=== PATIENT | male | born 1960 | race Caucasian/White ===

== ENCOUNTER 2023-11-14 13:27 | Inpatient (IN) | payer OTHER, SELFPAY ==
[2023-11-14 13:28] VITALS: BP 111/79; PULSE 117; RESP 18; TEMP 37.4; O2SAT 94; BMI 24.2
--- NOTE | 2023-11-14 14:09 | ECG_ITS ---
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: : 1960 Requested By: Phil Daley Order Number: [id number] Erik MD: GERARDO GAYLE Measurements Intervals [place] Rate: 110 P: 87 TN: 138 QRS: -76 QRSD: 90 T: 88 QT: 319 QTc: 433 Interpretive Statements SINUS TACHYCARDIA POSSIBLE LEFT ATRIAL ENLARGEMENT [-0.1mV P-WAVE IN V1/V2] POSSIBLE RIGHT VENTRICULAR CONDUCTION DELAY [RSR (QR) IN V1/V2] LEFT ANTERIOR FASCICULAR BLOCK [QRS AXIS <= -45, QR IN I, RS IN II] No previous ECG available for comparison Electronically Signed On 11-15-2023 20:24:37 CDT by GERARDO GAYLE [id number]
--- NOTE | 2023-11-14 14:14 | W.ED.PSYCHS ---
Documented by User: Phil Palaciossantiago 11/14/23 22:54 HPI - Psych General: Chief Complaint: Psychiatric Symptoms Stated Complaint: 96 evaluation. HI/SI Time Seen by Provider: 11/14/23 13:30 History of Present Illness: 62-year-old male presents by law enforcement chief complaint of both suicidal and homicidal concerns. Apparently the patient's daughter contacted a lot of force to do a well person check in which patient was acting and verbally aggressive towards law enforcement in which she had several knives on him as well as a gun in which patient was making threats of domestic tears and wanting to blow up people and/or buildings as well as all women should be punished and murdered. Patient made several threats while he was under the custody of law enforcement. Patient was brought into the ER for further assessment and management and evaluation for placement. Upon direct questioning patient does endorse that all women should be thrown in the concentration Which Should Be Murdered in Which he Referenced His Ex- and 30 Years Ago That Still Other Kids in Which the Legal System Has Failed Him in Which She Wants to Murder Everybody Patient Made Multiple Threats of Acts of Violence and As Well As Domestic Terrorism against Others throughout My Conversation with Him Patient Does Not Endorse Any Recent Use of Drugs or Alcohol or Any Other associated i concerns. Associated symptoms: Reports homicidal ideation and suicidal ideation; Deny depression Review of Systems General: Reports: 10 or more systems reviewed and unremarkable except in HPI and below Const: Denies: fever(s), chills, fatigue or malaise Eyes: Denies: change in vision or blurry vision Card: Denies: chest pain or palpitations Resp: Denies: dyspnea or productive cough GI: Denies: abdominal pain, nausea or vomiting : Denies: flank pain Musc: Denies: extremity pain or extremity swelling Skin/Breast: Denies: rash or pruritus Neuro: Denies: headache(s) Psych: Reports: paranoia, suicidal ideation, homicidal ideation and other; Denies: anxiety or depression Archie/Lymph: Denies: easy bleeding All/Imm: Denies: urticaria, throat swelling or facial swelling Physical Exam Const: COMMON NORMALS: patient oriented x3, healthy appearing and alert (Patient is verbally abusive on exam cursing at staff and law enforcement re); apparent distress HENMT: COMMON NORMALS: normocephalic and atraumatic HEAD & SCALP: normocephalic and atraumatic Eye: COMMON NORMALS: Equal, round and reactive pupils present and EOMs intact bilaterally PUPIL: Yes Equal, round and reactive pupils present Neck/C-Spine: COMMON NORMALS: full ROM, supple and no JVD Lymph: LYMPHATIC: no lymphadenopathy noted Chest: COMMONS NORMALS: normal inspection of the chest and normal palpation of entire chest wall Resp: COMMON NORMALS: normal respiratory effort, No retractions and clear to auscultation bilaterally EFFORT & INSPECTION: Yes able to speak in complete sentences and Yes symmetric chest movement AUSCULTATION: clear to auscultation bilaterally Cardio: COMMON NORMALS: no JVD and regular rhythm; negative for regular rate (Sinus tach in the low 100s) RATE: abnormal rate (Sinus tach in the low 100s) RHYTHM: regular rhythm GI: COMMON NORMALS: Normal to inspection, nondistended, normoactive bowel sounds present, Soft to palpation and non-tender INSPECTION: Yes normal to inspection PALPATION: Yes Soft to palpation : COMMON NORMALS: Yes no CVA tenderness BLADDER/KIDNEY EXAM: Yes no CVA tenderness Back/Pelvis: COMMON NORMALS: no CVA tenderness Extremity: COMMON NORMALS: normal to inspection and full ROM Neuro: COMMON NORMALS: patient oriented x3, CN's II-XII intact bilaterally, moves all extremities and no focal motor deficits SENSORIUM/ORIENTATION: Yes alert (Patient is verbally abusive on exam cursing at staff and law enforcement re) Psych: COMMON NORMALS: mental status grossly normal, Normal thought process present, cooperative and normal affect; negative for denies homicidal ideation (Active reports homicidal ideations and wanting to murder people and blow th) and negative for denies suicidal ideation THOUGHT PROCESS: Normal thought process present Skin: COMMON NORMALS: no rashes or lesions noted GENERAL SKIN EXAM: no rashes or lesions noted Course Vital Signs: Vital signs: Vital Signs Temperature 99.3 F 11/14/23 13:28 Pulse Rate 58 L 11/15/23 15:59 Respiratory Rate 16 11/15/23 15:59 Blood Pressure 119/71 11/15/23 15:59 Pulse Oximetry 98 11/15/23 15:59 Oxygen Delivery Me thod Room Air 11/15/23 15:59 MDM - Psych Medical Decision Making Due to patient current statements and 96-hour skilled nursing hold will be initiated on this patient advised the patient that he is here against as well in which we will be detained for his safety of the the staff I advised the patient we will be doing a medical screening examination for placement in which if required both physical and chemical restraints per protocol will be used if he attempts to act out in any concerning physical aggressive manner. Patient was found and medically cleared for psychiatric placement. The patient kalen in stable condition at this time we will continue to contact other facilities as we currently have no open beds in our psych facility. Patient is medically cleared still trying to find placement for this patient at this time this patient was signed out to my colleague Dr. Altman at 2300. Lab Data 11/14/23 14:25 11/14/23 14:25 Radiology Impressions Chest X-Ray 11/15/23 08:49 IMPRESSION: No acute findings. Laboratory Results WBC 10.42 10^3/uL (3.29-11.43) 11/14/23 14:25 RBC 5.85 10^6/uL (3.85-5.65) H 11/14/23 14:25 Hgb 18.10 g/dL (11.27-16.99) H 11/14/23 14:25 Hct 56.3 % (37-53) H 11/14/23 14:25 MCV 96.2 fl (82-101) 11/14/23 14:25 MCH 30.9 pg (27-33) 11/14/23 14:25 MCHC 32.1 g/dL (30-55) 11/14/23 14:25 RDW 13.0 % (12.1-15.1) 11/14/23 14:25 Plt Count 214 10^3/cmm (157-399) 11/14/23 14:25 MPV 10.6 fL (7.4-10.4) H 11/14/23 14:25 Neut % (Auto) 82.3 % 11/14/23 14:25 Lymph % (Auto) 12.5 % 11/14/23 14:25 [place] % (Auto) 4.2 % 11/14/23 14:25 Eos % (Auto) 0.3 % 11/14/23 14:25 Baso % (Auto) 0.4 % 11/14/23 14:25 Neut # (Auto) 8.58 10^3/uL (1.8-7.7) H 11/14/23 14:25 Lymph # (Auto) 1.3 10^3/uL (0.8-4.8) 11/14/23 14:25 [place] # (Auto) 0.4 10^3/uL (0.2-0.9) 11/14/23 14:25 Eos # (Auto) 0.0 10^3/uL (0.0-0.8) 11/14/23 14:25 Baso # (Auto) 0.0 10^3/uL (0.0-0.1) 11/14/23 14:25 Nucleated RBC % (auto) 0 % 11/14/23 14: Nucleated RBCs # 0.0 /100WBC 11/14/23 14:25 PT 14.90 SECONDS (12.1-14.9) 11/14/23 14:51 INR 1.13 (0.8-1.2) 11/14/23 14:51 Sodium 140 mmol/L (136-145) 11/14/23 14:25 Potassium 3.8 mmol/L (3.5-5.1) 11/14/23 14:25 Chloride 103 mmol/L (98-107) 11/14/23 14:25 Carbon Dioxide 20 mmol/L (22-29) L 11/14/23 14:25 Anion Gap 20.8 (5-19) H 11/14/23 14:25 BUN 22 mg/dL (8-23) 11/14/23 14:25 Creatinine 0.9 mg/dL (0.7-1.2) 11/14/23 14:25 GFR Calculation 85.8 mL/min (90-130) L 11/14/23 14:25 Glucose 135 mg/dL (65-115) H 11/14/23 14:25 Calculated Osmolality 295 mOsm/kg (285-295) 11/14/23 14:25 Calcium 9.6 mg/dL (8.5-10.5) 11/14/23 14:25 Total Bilirubin 0.6 mg/dL (0.15-1.2) 11/14/23 14:25 AST 13 U/L (0-40) 11/14/23 14:25 ALT 7 U/L (0-41) 11/14/23 14:25 Alkaline Phosphatase 59 U/L (40-130) 11/14/23 14:25 Total Protein 7.5 g/dL (6.6-8.7) 11/14/23 14:25 Albumin 5.3 g/dL (3.5-5.2) H 11/14/23 14:25 Globulin 2.2 g/dL (1.3-4.6) 11/14/23 14:25 TSH 1.01 uIU/mL (0.27-4.20) 11/15/23 09:02 Urine Color Yellow (Yellow) 11/14/23 15:04 Urine Appearance Clear (CLEAR) 11/14/23 15:04 Urine pH 5.5 (5-7) 11/14/23 15:04 Ur Specific [place] 1.026 (1.005-1.030) 11/14/23 15:04 Urine Protein Negative (Negative) 11/14/23 15:04 Urine Glucose (UA) Negative (Normal) 11/14/23 15:04 Urine Ketones 1+ (Negative) H 11/14/23 15:04 Urine Blood Trace (Negative) A 11/14/23 15:04 Urine Nitrate Negative (Negative) 11/14/23 15:04 Urine Bilirubin Negative (Negative) 11/14/23 15:04 Urine Urobilinogen 1.0 mg/dL (Negative) 11/14/23 15:04 Ur Leukocyte Esterase Negative (Negative) 11/14/23 15:04 Urine RBC 3-5 /hpf (0-2) 11/14/23 15:04 Urine WBC 0-5 /hpf (0-5) 11/14/23 15:04 Ur Squamous Epith Cells 0-5 /hpf (0-5) 11/14/23 15:04 Amorphous Sediment Not Reportable 11/14/23 15:04 Urine Bacteria None seen /hpf (NONE) 11/14/23 15:04 Hyaline Casts 0.81 /lpf 11/14/23 15:04 Salicylates < 0.3 mg/dL (3-10) L 11/14/23 14:25 Urine Opiates Screen Negative ng/mL (Negative) 11/14/23 15:04 Acetaminophen < 5.0 ug/mL (10-30) L 11/14/23 14:25 Ur Barbiturates Screen Negative ng/mL (Negative) 11/14/23 15:04 Ur Phencyclidine Scrn Negative ng/mL (Negative) 11/14/23 15:04 Ur Amphetamines Screen Negative ng/mL (Negative) 11/14/23 15:04 U Benzodiazepines Scrn Negative ng/mL (Negative) 11/14/23 15:04 Urine Cocaine Screen Negative ng/mL (Negative) 11/14/23 15:04 U Marijuana (THC) Screen Positive ng/mL (Negative) H 11/14/23 15:04 Ethyl Alcohol < 10 mg/dL (0-10) 11/14/23 14:25 Influenza Type A Ag negative (Negative) 11/14/23 14:12 Influenza Type B Ag negative (Negative) 11/14/23 14:12 RSV Antigen Negative (Negative) 11/14/23 14:12 SARS-CoV-2 Ag (Rapid) negative (Negative) 11/14/23 14:12 No radiology studies performed this visit EKG Data EKG 1: Interpretation: Sinus tachycardia rate of [address] segment elevations or depressions appreciated there is a left anterior fascicular block appreciated QTc is 384 ms. Discharge Plan Discharge Patient Disposition: Admitted As Inpatient Clinical Impression: Acute psychosis, Homicidal behavior Condition: Stable Coding Level of Care Code ED Hvac Design Mechanical Engineer for Chg Fwd Documented by User: Suleman Hernandez MD 11/16/23 08:46 HPI - Psych General: Chief Complaint: Psychiatric Symptoms Stated Complaint: 96 evaluation. HI/SI Time Seen by Provider: 11/14/23 13:30 Course Vital Signs: Vital signs: Vital Signs Temperature 99.3 F 11/14/23 13:28 Pulse Rate 58 L 11/15/23 15:59 Respiratory Rate 16 11/15/23 15:59 Blood Pressure 119/71 11/15/23 15:59 Pulse Oximetry 98 11/15/23 15:59 Oxygen Delivery Me thod Room Air 11/15/23 15:59 [facility] - Psych Medical Decision Making Due to patient current statements and 96-hour skilled nursing hold will be initiated on this patient advised the patient that he is here against as well in which we will be detained for his safety of the the staff I advised the patient we will be doing a medical screening examination for placement in which if required both physical and chemical restraints per protocol will be used if he attempts to act out in any concerning physical aggressive manner. Patient was found and medically cleared for psychiatric placement. The patient kalen in stable condition at this time we will continue to contact other facilities as we currently have no open beds in our psych facility. Patient is medically cleared still trying to find placement for this patient at this time this patient was signed out to my colleague Dr. Altman at 2300. Patient is medically cleared I did speak to psychiatrist or Dr. Khan having discharges today will admit him here at this time when bed is available he is medically cleared Lab Data 11/14/23 14:25 11/14/23 14:25 Radiology Impressions Chest X-Ray 11/15/23 08:49 IMPRESSION: No acute findings. Laboratory Results WBC 10.42 10^3/uL (3.29-11.43) 11/14/23 14:25 RBC 5.85 10^6/uL (3.85-5.65) H 11/14/23 14:25 Hgb 18.10 g/dL (11.27-16.99) H 11/14/23 14:25 Hct 56.3 % (37-53) H 11/14/23 14:25 MCV 96.2 fl (82-101) 11/14/23 14:25 MCH 30.9 pg (27-33) 11/14/23 14:25 MCHC 32.1 g/dL (30-55) 11/14/23 14:25 RDW 13.0 % (12.1-15.1) 11/14/23 14:25 Plt Count 214 10^3/cmm (157-399) 11/14/23 14:25 MPV 10.6 fL (7.4-10.4) H 11/14/23 14:25 Neut % (Auto) 82.3 % 11/14/23 14:25 Lymph % (Auto) 12.5 % 11/14/23 14:25 [place] % (Auto) 4.2 % 11/14/23 14:25 Eos % (Auto) 0.3 % 11/14/23 14:25 Baso % (Auto) 0.4 % 11/14/23 14:25 Neut # (Auto) 8.58 10^3/uL (1.8-7.7) H 11/14/23 14:25 Lymph # (Auto) 1.3 10^3/uL (0.8-4.8) 11/14/23 14:25 [place] # (Auto) 0.4 10^3/uL (0.2-0.9) 11/14/23 14:25 Eos # (Auto) 0.0 10^3/uL (0.0-0.8) 11/14/23 14:25 Baso # (Auto) 0.0 10^3/uL (0.0-0.1) 11/14/23 14:25 Nucleated RBC % (auto) 0 % 11/14/23 14:25 Nucleated RBCs # 0.0 /100WBC 11/14/23 14:25 PT 14.90 SECONDS (12.1-14.9) 11/14/23 14:51 INR 1.13 (0.8-1.2) 11/14/23 14:51 Sodium 140 mmol/L (136-145) 11/14/23 14:25 Potassium 3.8 mmol/L (3.5-5.1) 11/14/23 14:25 Chloride 103 mmol/L (98-107) 11/14/23 14:25 Carbon Dioxide 20 mmol/L (22-29) L 11/14/23 14:25 Anion Gap 20.8 (5-19) H 11/14/23 14:25 BUN 22 mg/dL (8-23) 11/14/23 14:25 Creatinine 0.9 mg/dL (0.7-1.2) 11/14/23 14:25 GFR Calculation 85.8 mL/min (90-130) L 11/14/23 14:25 Glucose 135 mg/dL (65-115) H 11/14/23 14:25 Calculated Osmolality 295 mOsm/kg (285-295) 11/14/23 14:25 Calcium 9.6 mg/dL (8.5-10.5) 11/14/23 14:25 Total Bilirubin 0.6 mg/dL (0.15-1.2) 11/14/23 14:25 AST 13 U/L (0-40) 11/14/23 14:25 ALT 7 U/L (0-41) 11/14/23 14:25 Alkaline Phosphatase 59 U/L (40-130) 11/14/23 14:25 Total Protein 7.5 g/dL (6.6-8.7) 11/14/23 14:25 Albumin 5.3 g/dL (3.5-5.2) H 11/14/23 14:25 Globulin 2.2 g/dL (1.3-4.6) 11/14/23 14:25 TSH 1.01 uIU/mL (0.27-4.20) 11/15/23 09:02 Urine Color Yellow (Yellow) 11/14/23 15:04 Urine Appearance Clear (CLEAR) 11/14/23 15:04 Urine pH 5.5 (5-7) 11/14/23 15:04 Ur Specific [place] 1.026 (1.005-1.030) 11/14/23 15:04 Urine Protein Negative (Negative) 11/14/23 15:04 Urine Glucose (UA) Negative (Normal) 11/14/23 15:04 Urine Ketones 1+ (Negative) H 11/14/23 15:04 Urine Blood Trace (Negative) A 11/14/23 15:04 Urine Nitrate Negative (Negative) 11/14/23 15:04 Urine Bilirubin Negative (Negative) 11/14/23 15:04 Urine Urobilinogen 1.0 mg/dL (Negative) 11/14/23 15:04 Ur Leukocyte Esterase Negative (Negative) 11/14/23 15:04 Urine RBC 3-5 /hpf (0-2) 11/14/23 15:04 Urine WBC 0-5 /hpf (0-5) 11/14/23 15:04 Ur Squamous Epith Cells 0-5 /hpf (0-5) 11/14/23 15:04 Amorphous Sediment Not Reportable 11/14/23 15:04 Urine Bacteria None seen /hpf (NONE) 11/14/23 15:04 Hyaline Casts 0.81 /lpf 11/14/23 15:04 Salicylates < 0.3 mg/dL (3-10) L 11/14/23 14:25 Urine Opiates Screen Negative ng/mL (Negative) 11/14/23 15:04 Acetaminophen < 5.0 ug/mL (10-30) L 11/14/23 14:25 Ur Barbiturates Screen Negative ng/mL (Negative) 11/14/23 15:04 Ur Phencyclidine Scrn Negative ng/mL (Negative) 11/14/23 15:04 Ur Amphetamines Screen Negative ng/mL (Negative) 11/14/23 15:04 U Benzodiazepines Scrn Negative ng/mL (Negative) 11/14/23 15:04 Urine Cocaine Screen Negative ng/mL (Negative) 11/14/23 15:04 U Marijuana (THC) Screen Positive ng/mL (Negative) H 11/14/23 15:04 Ethyl Alcohol < 10 mg/dL (0-10) 11/14/23 14:25 Influenza Type A Ag negative (Negative) 11/14/23 14:12 Influenza Type B Ag negative (Negative) 11/14/23 14:12 RSV Antigen Negative (Negative) 11/14/23 14:12 SARS-CoV-2 Ag (Rapid) negative (Negative) 11/14/23 14:12 Discharge Plan Discharge Patient Disposition: Admitted As Inpatient Clinical Impression: Acute psychosis, Homicidal behavior Condition: Stable Coding Level of Care Code ED Hvac Design Mechanical Engineer for Randy Alvarez
--- NOTE | 2023-11-14 14:21 | PC.NURSE ---
96 hr rights reviewed with patient @1400 with assistance of [facility] hotel security officer Lonnie. [facility] [employer] at bedside with patient as well taking patient out of handcuffs. All education reviewed with patient. No verbalized questions or concerns at this time. Patient copy left @bedside with patient. Soda provided to patient at this time as well.
[2023-11-14 14:31] VITALS: PULSE 106; O2SAT 94
[2023-11-14 14:40] LABS: SARS Covid-2 Antigen negative (Negative)
[2023-11-14 14:54] LABS: Basophils % 0.4 %; Eosinophils % 0.3 %; Hematocrit 56.3 % (37-53); Lymphocytes # 1.3 10^3/uL (0.8-4.8); Lymphocytes % 12.5 %; Mean Corpuscular HGB Conc 32.1 g/dL (30-55); Mean Corpuscular Hemoglobin 30.9 pg (27-33); Mean Corpuscular Volume 96.2 fl (82-101); Mean Platelet Volume 10.6 fL (7.4-10.4); Monocytes # 0.4 10^3/uL (0.2-0.9); Monocytes % 4.2 %; Neutrophils # 8.58 10^3/uL (1.8-7.7); Neutrophils % 82.3 %; Nucleated Red Blood Cells % 0 %; Platelet Count 214 10^3/cmm (157-399); Red Blood Count 5.85 10^6/uL (3.85-5.65); White Blood Count 10.42 10^3/uL (3.29-11.43)
[2023-11-14 15:06] LABS: Alanine Aminotransferase 7 U/L (0-41); Albumin Level 5.3 g/dL (3.5-5.2); Alkaline Phosphatase 59 U/L (40-130); Aspartate Amino Transferase 13 U/L (0-40); Blood Urea Nitrogen 22 mg/dL (8-23); Calcium 9.6 mg/dL (8.5-10.5); Carbon Dioxide 20 mmol/L (22-29); Chloride 103 mmol/L (98-107); Globulin 2.2 g/dL (1.3-4.6); Glomerular Filtration Rate 85.8 mL/min (90-130); Glucose 135 mg/dL (65-115); Osmolality Calculated 295 mOsm/kg (285-295); Sodium 140 mmol/L (136-145); Total Bilirubin 0.6 mg/dL (0.15-1.2); Total Protein 7.5 g/dL (6.6-8.7)
[2023-11-14 15:10] LABS: Acetaminophen < 5.0 ug/mL (10-30); Alcohol Level < 10 mg/dL (0-10); Salicylate < 0.3 mg/dL (3-10)
[2023-11-14 15:11] LABS: Influenza A by IFA negative (Negative); Influenza B by IFA negative (Negative)
[2023-11-14 15:11] LABS: Anion Gap 20.8 (5-19); Potassium 3.8 mmol/L (3.5-5.1)
[2023-11-14 15:14] LABS: Charge for UA Resulting for Rev
[2023-11-14 15:17] LABS: Bilirubin Urine Negative (Negative); Blood Urine Trace (Negative); Glucose Urine UA Negative (Normal); Ketones Urine 1+ (Negative); Leukocyte Esterase Urine Negative (Negative); Nitrate Urine Negative (Negative); Protein Urine Negative (Negative); Specific Gravity, Urine 1.026 (1.005-1.030); Urine Appearance Clear (CLEAR); Urine Color Yellow (Yellow); pH Urine 5.5 (5-7)
[2023-11-14 15:17] LABS: RSV Transfer Patient (ED) Negative (Negative)
[2023-11-14 15:22] LABS: INR 1.13 (0.8-1.2)
[2023-11-14 15:23] LABS: Bacteria Urine None Seen /hpf; Hyaline Casts Urine 0.81 /lpf; Squamous Epithelial Cell Urine 0-5 /hpf (0-5); WBC Urine 0-5 /hpf (0-5)
[2023-11-14 15:26] LABS: Amphetamines Screen Urine Negative (Negative); Barbiturates Screen Urine Negative (Negative); Benzodiazepines Screen Urine Negative (Negative); Cocaine Screen Urine Negative (Negative); Opiate Screen Urine Negative (Negative); PCP Screen Urine Negative (Negative); THC Screen Urine Positive (Negative)
--- NOTE | 2023-11-14 17:37 | PC.NURSE ---
Patient Seamer Operator came to me and stated that the patient was sitting somewhat hunched and holding his hand to his chest. Marcial Eldridge from [facility] went to speak with patient and ask him if he was having chest pain. Patient states that he was having pain but he was not going to tell him where. I then asked Bradley Moy to please do an EKG on the patient to rule out anything that might be heart related causing him chest pain. Bradley went into the the patient's room and the patient told Bradley to get out of his room and to leave him alone he didn't want anything done.
[2023-11-14 18:20] VITALS: BP 128/78; PULSE 82; RESP 18; O2SAT 95
--- NOTE | 2023-11-15 02:22 | DCPLANNER ---
Check back with Rachid Ricks after 0830 am-
--- NOTE | 2023-11-15 08:37 | PC.NURSE ---
PT GIVEN BREAKFAST TRAY. PT THROWING FOOD IN FLOOR STATES I HOPE [employer] [facility] .
--- NOTE | 2023-11-15 08:49 | XRR_ITS ---
PROCEDURE INFORMATION: Exam: XR Chest Exam date and time: 11/15/2023 9:06 AM Age: 62 years old Clinical indication: Screening exam; Other screening; Patient HX: Psych evaluation; Limited HX due to PT cooperation; Additional info: Transfer TECHNIQUE: Imaging protocol: Radiologic exam of the chest. Views: 1 view. COMPARISON: No relevant prior studies available. FINDINGS: Lungs: Hyperinflation. No consolidation. Pleural spaces: Unremarkable. No pleural effusion. No pneumothorax. Heart/Mediastinum: Unremarkable. No cardiomegaly. Bones/joints: Unremarkable. Soft tissue: Small calcification overlying left abdomen may represent renal calculus. XR/XR chest 1V portable [id number] IMPRESSION: No acute findings.
[2023-11-15 09:36] LABS: Thyroid Stimulating Hormone 1.01 uIU/mL (0.27-4.20)
--- NOTE | 2023-11-15 12:39 | PC.NURSE ---
PT REFUSING VITALS. PT THROWING FOOD FROM TRAY AT [facility].
--- NOTE | 2023-11-15 13:46 | PC.NURSE ---
PT INFORMATION FAXED TO FOLLOWING FACILITIES [facility] JEREMIAH SANCHEZ
[2023-11-15 15:59] VITALS: BP 119/71; PULSE 58; RESP 16; O2SAT 98
--- NOTE | 2023-11-15 16:05 | PC.NURSE ---
this nurse was getting updated vitals on pt. pt told this nurse he just wants to . pt stated he doesn't want to live in this world because of the women in his life and the fact that they lied to him, cheated on him and kidnapped his children. pt states all women are liars and cheaters. pt stated he just wants to go home so he can do whatever he wants and take himself out of this world.
--- NOTE | 2023-11-15 18:22 | PC.NURSE ---
pt complains of chest tightness, refusing ekg or any monitoring. pt will not allow for vitals to be checked.
[2023-11-16 13:09] VITALS: BP 123/93; BP 97/60; PULSE 105; PULSE 117; RESP 18; TEMP 36.3; TEMP 36.8; O2SAT 97; O2SAT 99
[2023-11-16 14:00] VITALS: BP 121/78; PULSE 107; RESP 18; TEMP 37; O2SAT 95
[2023-11-16 21:39] VITALS: BP 100/71; PULSE 99; RESP 18; TEMP 36.6; O2SAT 96
[2023-11-17 06:00] VITALS: BP 100/74; PULSE 93; RESP 16; O2SAT 95
--- NOTE | 2023-11-17 06:06 | P.NPUHP_ITS ---
Providers/Chief Complaint 2 Admitting Physician: Dheeraj Khan MD Chief Complaint: 96 evaluation. HI/SI HPI NPU History of Present Illness Deuce Gonzalez is a 62 year old male who presented to the emergency department with the following report: Chief Complaint: Psychiatric Symptoms Stated Complaint: 96 evaluation. HI/SI Time Seen by Provider: 11/14/23 13:30 History of Present Illness: 62-year-old male presents by law enforcement chief complaint of both suicidal and homicidal concerns. Apparently the patient's daughter contacted a lot of force to do a well person check in which patient was acting and verbally aggressive towards law enforcement in which she had several knives on him as well as a gun in which patient was making threats of domestic tears and wanting to blow up people and/or buildings as well as all women should be punished and murdered. Patient made several threats while he was under the custody of law enforcement. Patient was brought into the ER for further assessment and management and evaluation for placement. Upon direct questioning patient does endorse that all women should be thrown in the concentration Which Should Be Murdered in Which he Referenced His Ex- and 30 Years Ago That Still Other Kids in Which the Legal System Has Failed Him in Which She Wants to Murder Everybody Patient Made Multiple Threats of Acts of Violence and As Well As Domestic Terrorism against Others throughout My Conversation with Him Patient Does Not Endorse Any Recent Use of Drugs or Alcohol or Any Other associated i concerns. Associated symptoms: Reports homicidal ideation and suicidal ideation; Deny depression. He was admitted to the neuropsychiatric unit for definitive treatment of those issues. He is known to the inpatient unit from 1 past inpatient stay back in 2013. An excerpt of that evaluation is included below for context and history. Given the context of his emergency room presentation his previous psychiatric evaluation is noteworthy. Some of the same things are present and him getting to a point where he was aggressive and belligerent and ignoring the interventions or resisting the interventions of law enforcement remain a constant. He presents today reporting: Chief complaint The patient is experiencing distress due to family conflict, specifically with his daughters over property disputes. He also mentioned having anxiety, for which he takes medication. History of the present complaint The patient, a 63-year-old male, presented with a complex emotional situation primarily centered around familial issues. He reported feeling anxiety and depression, which he attributed to the estrangement from his three daughters. This estrangement was a result of his ex-wives allegedly taking his children away from him and preventing him from having a relationship with them. The patient reported that these feelings of anxiety and depression have been present since his daughters were very young, approximately 30 years ago, and tend to come and go, often triggered by thoughts of his children and his desire to have been a good father. The patient reported that he has been prescribed medication for his anxiety, although he was unsure of the specific medication. He also mentioned that he has been taking Prozac, prescribed by his primary care doctor, for about three months. He reported taking this medication once a day as prescribed. The patient also reported having Chronic Obstructive Pulmonary Disease (COPD) for which he uses an inhaler. He mentioned that he smokes a corn cob pipe throughout the day, despite having tried to quit several times. He also reported occasional use of cannabis, approximately once a day or once every two to three days. He denied any alcohol use for the past 10 years and denied any use of other drugs. The patient reported having made suicidal comments in the past out of anger and hurt, but strongly denied any current suicidal ideation. He attributed his lack of intent to harm himself to his holiness beliefs, specifically his belief in God, heaven, and Michael, and his desire to see his father again in [facility]. The patient reported living alone with his dog in a house he built on his property. He described his daily activities as watching birds and squirrels from his porch, visiting his brother, and [place] [facility] He denied any feelings of paranoia or experiencing hallucinations. He also denied having any nightmares or flashbacks about past traumatic events. The patient expressed a strong desire to return home to care for his dog, who he reported has heart problems and requires medication. He expressed concern that his dog was not eating in his absence and was at risk of dying if he did not return home soon. Mental health history The patient has a history of anxiety and has been prescribed medication for it. He has been taking Prozac for about three months, as prescribed by his primary care doctor. He has previously been admitted to a psychiatric hospital due to the ongoing family situation. Social history The patient is a 63-year-old man who lives alone with his dog. He has three daughters, but he has a strained relationship with them and has not seen them frequently over the past 30 years. He has a history of smoking pipe tobacco daily and has COPD. He has tried to quit smoking multiple times without success. He does not consume alcohol and has not done so for the past 10 years. He occasionally uses cannabis. 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 He enjoys watching birds and squirrels from his porch. Per his 11/06/2013 [facility] inpatient psychiatric evaluation: DATE OF HISTORY AND PHYSICAL: 11/06/2013 DATE OF DICTATION: 11/06/2013 CHIEF COMPLAINT: Suicidal thoughts. HISTORY OF PRESENT ILLNESS: The patient was admitted from the Emergency Room. He has been very uncooperative. He was not able to come to the office for the interview. Same level of uncooperativeness was also noted in the Emergency Room and during the assessment of nursing, at the time of admission. According to the affidavits, the police stated that the patient called the [employer] and stated that he was going to shoot himself. The police went to the patient's residence and found a suicide note in the front of the door saying Do not try to find me. I am not meant to live in your world. I do not belong here. I should have killed myself five years ago and now I am going to do it. Hope you have fun in your life. I do not belong in it no more. The patient ranted that everyone was against him. The police located a lot of firearms in the residence. He has been belligerent and uncooperative. He has received Haldol and Ativan. His drug screen was positive for marijuana. It appears like he was denied disability, but he was not able to clarify. He has mentioned a strong hatred towards women. He has also mentioned because of his strong hatred towards women, he does not like his F ing daughters. ALLERGIES: NO KNOWN DRUG ALLERGIES. MEDICATIONS: The patient denied taking any medications. PAST PSYCHIATRIC HISTORY: He was not able to disclose. SUBSTANCE ABUSE HISTORY: Obviously marijuana, based on the drug screen, but he was not able to disclose. PAST MEDICAL HISTORY: He has denied. DIAGNOSTICS: LABORATORIES: White count 4.0, hemoglobin 17.3, platelets 239. Toxicology was positive for marijuana. Alcohol level was negative. Sodium 132, potassium 3.5, creatinine 0.8, AST and ALT were 11 and 20, respectively. Meds NPU Home Medications Medication Instructions Recorded Confirmed Last Taken Type albuterol sulfate 90 mcg/actuation 2 puff inhalation Q6H PRN 11/16/23 11/16/23 Unknown History aerosol inhaler Shortness Of Breath Or Wheezing famotidine 20 mg tablet 20 mg PO DAILY 11/16/23 11/16/23 Unknown History fluticasone propionate 115 2 puff inhalation BID 11/16/23 11/16/23 Unknown History mcg-salmeterol 21 mcg/actuation HFA inhaler Allergies Allergy/AdvReac Type Severity Reaction Status Date / Time No Known Allergies Allergy Verified 11/16/23 19:25 Mental Status Exam 2 MSE Comments: This is a slender well-developed white male in hospital scrubs with limited grooming and eye contact. No abnormal movements except for mild psychomotor retardation. Cooperative with exam in no mild distress. Speech was mostly normal rate and decreased volume. Mood described as frustrated, affect congruent . Thought process was linear and mostly organized. Thought content: Patient denied suicidal or homicidal ideation but did report some possible statements that have been said surrounding this that were not meant, there were no delusions reported or noted, he denied auditory and visual hallucinations. The patient has expressed feelings of anger and hurt due to his family situation. He has admitted to having made suicidal comments in the past out of anger and hurt, but he denies any current suicidal ideation. He does not report any hallucinations, paranoia, or obsessive-compulsive behaviors. He reports periods of significant depression and anxiety, which he says come and go Attention and concentration were intact and memory appeared mostly reliable but none were formally tested. He is alert and oriented x 3. Insight and judgment limited, impulse control is limited. Vitals/I&O/Wt Last Vital Signs Temp 98 F 11/16/23 21:39 Pulse 99 11/16/23 21:39 Resp 18 11/16/23 21:39 BP 100/71 11/16/23 21:39 Pulse Ox 96 11/16/23 21:39 O2 Del Method Room Air 11/16/23 21:39 Data NPU 11/14/23 14:25 11/14/23 14:25 A&P Assessment and plan (1) Homicidal behavior: (2) Acute psychosis: (3) Parent-child relational problem: (4) Partner relational problem: (5) Anxiety disorder, unspecified: (6) Major depressive disorder, recurrent, unspecified: (7) Cannabis use disorder: Plan This is a 62-year-old white male with a long history of partner relational problems, parent-child relational problems and some possible addiction with reports of depression and anxiety coming from those challenges with his children and ex-wives. The patient is dealing with significant family stressors, which are contributing to his anxiety and periods of depression. He has a history of anxiety and has been on medication for it. He has made suicidal comments in the past but denies any current suicidal ideation. He has a history of substance use, including daily tobacco use and occasional cannabis use. 1. Continue current medication. Increase Prozac to 40 mg p.o. daily 2. Continue every 15 minute checks for safety. 3. Encourage individual, group and milieu therapies. 4. Obtain collateral information. 5. Encourage sober living treatment after discharge at the highest level of care to which he is willing to commit. Attestations NPU 2 Medical Necessity Statement*: Inpatient hospitalization is medically necessary and the clinically appropriate intervention at this time. We will monitor medication to make changes as indicated. Patient will be in the hospital for over two midnights. His likely length of stay 2-4 days. Coding Level of Care Code Acute Code for [facility] Diagnoses Homicidal behavior R45.850 Acute psychosis F23 Parent-child relational problem Z62.820 Partner relational problem Z63.0 Anxiety disorder, unspecified F41.9 Major depressive disorder, recurrent, unspecified F33.9 Cannabis use disorder F12.90
[2023-11-17 14:00] VITALS: BP 104/65; PULSE 94; RESP 17; TEMP 37.2; O2SAT 94
[2023-11-17] MEDS: fluoxetine 20 mg Capsule 40 MG PO (17:31)
[2023-11-17 19:42] VITALS: BP 102/69; PULSE 100; RESP 18; TEMP 36.9; O2SAT 97
[2023-11-17] MEDS: trazodone 50 mg Tablet PO (21:23)
[2023-11-18 06:00] VITALS: BP 104/63; PULSE 60; RESP 16; TEMP 37; O2SAT 97
--- NOTE | 2023-11-18 08:20 | PC.NURSE ---
Patient refused fluoxetine this morning. When asked why he did not want to take it he said he couldn't tell that it made a difference after taking it yesterday. This RN explained to him that fluoxetine takes a bit to get into your system and have the effects that it is meant to have. Patient continued to refuse. Dr. Khan notified.
[2023-11-18 14:00] VITALS: RESP 16
--- NOTE | 2023-11-18 15:11 | PC.NURSE ---
patient refused vitals.
--- NOTE | 2023-11-18 17:39 | PC.NURSE ---
Patient pulled his tray off of the cart and became unsteady. This RN attempted to help steady him by supporting him, but patient yanked his arm away. Patient then walked to his room without saying a word. This RN followed him into his room and asked what was bothering him, but he refused to make eye contact or talk. He was then asked if something had happened or if someone had said something rude to him. He again refused to make eye contact or talk. A male customer security clerk was brought into the room and the patient did talk with him. Patient stated he was ready to go home, that the food here looks like shit, and said, I HATE fucking women after all they've done to me. I hate women! Dr. Khan was informed of the patient's behavior. No new orders at this time.
--- NOTE | 2023-11-18 20:04 | PC.NURSE ---
pt refused vitals nurse notified pt resp are at 17
--- NOTE | 2023-11-18 21:43 | P.NPUPN_ITS ---
Subjective NPU 2 Subjective: Patient presented today reporting that he is doing okay. He had some resurgence of some possible paranoia or persecutory thinking per staff reports and direct observation. He spent much of the interview replaying his greatest hits about how he had been wrongs in the past and people trying to lay claim to his property [place]. We continue to discuss precarious situation his children must have been and the fact that they were not voter in any of the situations but are equally victims to the estrangement. We discussed concerns about his thought processes and queried whether the marijuana might be playing a role in his decompensation which he took significant offense to and was very defensive because its legal. He denied any side effects to the medication. Mental Status Exam 2 MSE Comments: This is a slender well-developed white male in hospital scrubs with limited grooming and eye contact. No abnormal movements except for mild psychomotor retardation. Cooperative with exam in no mild distress. Speech was mostly normal rate and decreased volume. Mood described as frustrated, affect congruent . Thought process was linear and mostly organized. Thought content: Patient denied suicidal or homicidal ideation but did report some possible statements that have been said surrounding this that were not meant, there were no delusions reported but some paranoia and possible respiratory thinking noted, he denied auditory and visual hallucinations. The patient has expressed feelings of anger and hurt due to his family situation. He has admitted to having made suicidal comments in the past out of anger and hurt, but he denies any current suicidal ideation. He does not report any hallucinations, paranoia, or obsessive-compulsive behaviors. He reports periods of significant depression and anxiety, which he says come and go Attention and concentration were intact and memory appeared mostly reliable but none were formally tested. He is alert and oriented x 3. Insight and judgment limited, impulse control is limited. Vitals/I&O/Wt Last Vital Signs Temp 98.6 F 11/18/23 06:00 Pulse 60 11/18/23 06:00 Resp 16 11/18/23 14:00 BP 104/63 11/18/23 06:00 Pulse Ox 97 11/18/23 06:00 O2 Del Method Room Air 11/17/23 06:00 Data NPU 11/14/23 14:25 11/14/23 14:25 A&P Assessment and plan (1) Homicidal behavior: (2) Acute psychosis: (3) Parent-child relational problem: (4) Partner relational problem: (5) Anxiety disorder, unspecified: (6) Major depressive disorder, recurrent, unspecified: (7) Cannabis use disorder: Plan This is a 62-year-old white male with a long history of partner relational problems, parent-child relational problems and some possible addiction with reports of depression and anxiety coming from those challenges with his children and ex-wives. The patient is dealing with significant family stressors, which are contributing to his anxiety and periods of depression. He has a history of anxiety and has been on medication for it. He has made suicidal comments in the past but denies any current suicidal ideation. He has a history of substance use, including daily tobacco use and occasional cannabis use. 1. Continue current medication. Increased Prozac to 40 mg p.o. daily. Discussed the possibility of Abilify 2. Continue every 15 minute checks for safety. 3. Encourage individual, group and milieu therapies. 4. Obtain collateral information. 5. Encourage sober living treatment after discharge at the highest level of care to which he is willing to commit. Involuntary Hold Information 2 96 Hour Hold: 96 Hour Involuntary Admission: Yes 96 Hour Hold Ending Date: 11/20/23 96 Hour Hold Ending Time: 13:50 Attestations NPU 2 Medical Necessity Statement*: Inpatient hospitalization is medically necessary and the clinically appropriate intervention at this time. We will monitor medication to make changes as indicated. His likely length of stay 2-4 days. Coding Level of Care Code Acute Code for [facility] Diagnoses Homicidal behavior R45.850 Acute psychosis F23 Parent-child relational problem Z62.820 Partner relational problem Z63.0 Anxiety disorder, unspecified F41.9 Major depressive disorder, recurrent, unspecified F33.9 Cannabis use disorder F12.90
[2023-11-19 06:00] VITALS: RESP 17
--- NOTE | 2023-11-19 06:33 | PC.NURSE ---
pt refused vitals this morning pts resp 17
[2023-11-19 14:00] VITALS: BP 101/64; PULSE 98; RESP 16; O2SAT 96
--- NOTE | 2023-11-19 14:59 | PC.NURSE ---
PT STEPPED OFF UNIT FOR 21DAY COURT @ [id number]
--- NOTE | 2023-11-19 16:16 | P.NPUPN_ITS ---
Subjective NPU 2 Subjective: Patient presented today reporting that he wants to discharge. He asked that I speak to his brother and a that call. His brother was initially somewhat challenging but as he got a marsh picture of the history and what was on the affidavits for the 96-hour hold he gained an understanding of why there were concerns and why there is a likelihood for initiation of a 21-day hold tomorrow. Patient is taking Prozac and only a continued conversation about concerns about the impact of marijuana on his aging brain. He denied any side effects of the medication. Mental Status Exam 2 MSE Comments: This is a slender well-developed white male in hospital scrubs with limited grooming and eye contact. No abnormal movements except for mild psychomotor retardation. Cooperative with exam in no mild distress. Speech was mostly normal rate and decreased volume. Mood described as frustrated, affect congruent . Thought process was linear and mostly organized. Thought content: Patient denied suicidal or homicidal ideation but did report some possible statements that have been said surrounding this that were not meant, there were no delusions reported but some paranoia and possible respiratory thinking noted, he denied auditory and visual hallucinations. The patient has expressed feelings of anger and hurt due to his family situation. He has admitted to having made suicidal comments in the past out of anger and hurt, but he denies any current suicidal ideation. He does not report any hallucinations, paranoia, or obsessive-compulsive behaviors. He reports periods of significant depression and anxiety, which he says come and go Attention and concentration were intact and memory appeared mostly reliable but none were formally tested. He is alert and oriented x 3. Insight and judgment limited, impulse control is limited. Vitals/I&O/Wt Last Vital Signs Temp 98.6 F 11/18/23 06:00 Pulse 98 11/19/23 14:00 Resp 16 11/19/23 14:00 BP 101/64 11/19/23 14:00 Pulse Ox 96 11/19/23 14:00 O2 Del Method Room Air 11/17/23 06:00 Data NPU 11/14/23 14:25 11/14/23 14:25 A&P Assessment and plan (1) Homicidal behavior: (2) Acute psychosis: (3) Parent-child relational problem: (4) Partner relational problem: (5) Anxiety disorder, unspecified: (6) Major depressive disorder, recurrent, unspecified: (7) Cannabis use disorder: Plan This is a 62-year-old white male with a long history of partner relational problems, parent-child relational problems and some possible addiction with reports of depression and anxiety coming from those challenges with his children and ex-wives. The patient is dealing with significant family stressors, which are contributing to his anxiety and periods of depression. He has a history of anxiety and has been on medication for it. He has made suicidal comments in the past but denies any current suicidal ideation. He has a history of substance use, including daily tobacco use and occasional cannabis use. 1. Continue current medication. Increased Prozac to 40 mg p.o. daily. Discussed the possibility of Abilify 2. Continue every 15 minute checks for safety. 3. Encourage individual, group and milieu therapies. 4. Obtain collateral information. 5. Encourage sober living treatment after discharge at the highest level of care to which he is willing to commit. Involuntary Hold Information 2 96 Hour Hold: 96 Hour Involuntary Admission: Yes 96 Hour Hold Ending Date: 11/20/23 96 Hour Hold Ending Time: 13:50 Attestations NPU 2 Medical Necessity Statement*: Inpatient hospitalization is medically necessary and the clinically appropriate intervention at this time. We will monitor medication to make changes as indicated. His likely length of stay 2-4 days. Coding Level of Care Code [facility] Diagnoses Homicidal behavior R45.850 Acute psychosis F23 Parent-child relational problem Z62.820 Partner relational problem Z63.0 Anxiety disorder, unspecified F41.9 Major depressive disorder, recurrent, unspecified F33.9 Cannabis use disorder F12.90
[2023-11-19 20:19] VITALS: RESP 16
[2023-11-20] MEDS: acetaminophen 325 mg Tablet 650 MG PO (05:41)
[2023-11-20 06:00] VITALS: PULSE 88; RESP 16; TEMP 37; O2SAT 95
--- NOTE | 2023-11-20 09:18 | PC.NURSE ---
AMBULATING DOWN PALMER WITH WALKER, PT ATTEMPTED TO SIT DOWN IN FLOOR BUT THIS RN INTERVENED AND ASSISTED HIM TO ROOM WITH TO USE HIS WALKER. EDUCATION WAS ALSO PROVIDED TO USE HIS WALKER WHEN WALKING. PT IS NOTED TO HAVE RAPID, EXCESSIVE SPEECH AND SPEAKS HATE AND DISCONTENT TOWARDS WOMEN. PT DOES APOLOGIZE IF THAT OFFENDS YOU I'M SORRY. PT RATES PAIN IN LEGS AND BACK 11/07. MED NURSE NOTIFIED TO GIVE MEDIATIONS IF TIME. DENIES SI/HI AND AVH AT THIS TIME. RATES ANXIETY 11/07 AND DEPRESSION 06/07. PT STATES HIS GOAL FOR THE DAY IS TO GO HOME, START A NEW LIFE AND NEW BEGINNING. PT GAVE HIS LIFE STORY DURING ASSESSMENT MAKING SURE THIS RN KNEW WHY I HATE ALL FUCKING WOMEN. ALL QUESTIONS ANSWERED AND SUPPORT VOICED.
--- NOTE | 2023-11-20 11:00 | PC.NURSE ---
PT HAS BEEN OBSERVED SEVERAL TIMES THIS MORNING DECLINING TO WALK WITH HIS WALKER AND THEN WHEN AMBULATING IN DAY ROOM OR PALMER, PT WILL SIT DOWN IN THE FLOOR YELLING I JUST CAN'T GO ON, I HAVE TO TAKE A BREAK. STAFF GOES AND ASSIST TO HIS BED OR CHAIR THEN CONTINUES TO RE-ENFORCE AND ENCOURAGE THE USE OF HIS WALKER. EDUCATION HAS BEEN PROVIDED ON USING HIS WALKER WHEN AMBULATING. MED NURSE HAS ADMINISTERED MEDICATIONS FOR PAIN AND PT HAS VOICED RELIEF. PT WAS OBSERVED IN THE AFTERNOON LAUGHING AND PLAYING CARDS WITH PEERS. PT IS CONSTANTLY REMINDED TO USE WALKER WITH LITTLE RESOLVE. SUPPORT VOICED.
[2023-11-20 13:54] VITALS: BP 107/70; PULSE 61; RESP 16; TEMP 36.7; O2SAT 97
--- NOTE | 2023-11-20 14:18 | P.NPUPN_ITS ---
Subjective NPU 2 Subjective: Patient presented today reporting that he is having some physical complaints. Had a long discussion about exercises for sciatica and getting PT OT to come through tomorrow and give him some appropriate exercises to assist in the pain syndrome that he is having. We continue to discuss cannabis and need for him to consider removing that from his regimen. He denied any side effects to his medications and we discussed filing the 21-day hold but also the likelihood that discharge could come in the next 48 hours. Mental Status Exam 2 MSE Comments: This is a slender well-developed white male in hospital scrubs with limited grooming and eye contact. No abnormal movements except for mild psychomotor retardation. Cooperative with exam in no mild distress. Speech was mostly normal rate and decreased volume. Mood described as frustrated, affect congruent . Thought process was linear and mostly organized. Thought content: Patient denied suicidal or homicidal ideation but did report some possible statements that have been said surrounding this that were not meant, there were no delusions reported but some paranoia and possible respiratory thinking noted, he denied auditory and visual hallucinations. The patient has expressed feelings of anger and hurt due to his family situation. He has admitted to having made suicidal comments in the past out of anger and hurt, but he denies any current suicidal ideation. He does not report any hallucinations, paranoia, or obsessive-compulsive behaviors. He reports periods of significant depression and anxiety, which he says come and go Attention and concentration were intact and memory appeared mostly reliable but none were formally tested. He is alert and oriented x 3. Insight and judgment limited, impulse control is limited. Vitals/I&O/Wt Last Vital Signs Temp 98.1 F 11/20/23 13:54 Pulse 61 11/20/23 13:54 Resp 16 11/20/23 13:54 BP 107/70 11/20/23 13:54 Pulse Ox 97 11/20/23 13:54 O2 Del Method Room Air 11/17/23 06:00 Data NPU 11/14/23 14:25 11/14/23 14:25 A&P Assessment and plan (1) Homicidal behavior: (2) Acute psychosis: (3) Parent-child relational problem: (4) Partner relational problem: (5) Anxiety disorder, unspecified: (6) Major depressive disorder, recurrent, unspecified: (7) Cannabis use disorder: Plan This is a 62-year-old white male with a long history of partner relational problems, parent-child relational problems and some possible addiction with reports of depression and anxiety coming from those challenges with his children and ex-wives. The patient is dealing with significant family stressors, which are contributing to his anxiety and periods of depression. He has a history of anxiety and has been on medication for it. He has made suicidal comments in the past but denies any current suicidal ideation. He has a history of substance use, including daily tobacco use and occasional cannabis use. 1. Continue current medication. Increased Prozac to 40 mg p.o. daily. 2. Continue every 15 minute checks for safety. 3. Encourage individual, group and milieu therapies. 4. Obtain collateral information. Will work with brother to secure guns. Will additionally filed 21-day hold to ensure safety. While we manage those things. 5. Encourage sober living treatment after discharge at the highest level of care to which he is willing to commit. Involuntary Hold Information 2 96 Hour Hold: 96 Hour Involuntary Admission: Yes 96 Hour Hold Ending Date: 11/20/23 96 Hour Hold Ending Time: 13:50 Attestations NPU 2 Medical Necessity Statement*: Inpatient hospitalization is medically necessary and the clinically appropriate intervention at this time. We will monitor medication to make changes as indicated. His likely length of stay 1-3 days. Coding Level of Care Code Acute Code for [facility] Fwd Diagnoses Homicidal behavior R45.850 Acute psychosis F23 Parent-child relational problem Z62.820 Partner relational problem Z63.0 Anxiety disorder, unspecified F41.9 Major depressive disorder, recurrent, unspecified F33.9 Cannabis use disorder F12.90
[2023-11-20] MEDS: ibuprofen 600 mg Tablet PO ×2 (14:51→20:46)
--- NOTE | 2023-11-20 14:54 | PC.NURSE ---
PT CONTINUES TO TAKE A FEW STEPS THEN HE SITS IN THE FLOOR STATING I NEED A BREAK, I JUST CAN'T MAKE IT. PT STATES HE IS HAVING CHRONIC PAIN DUE TO HIS BACK AND LEG PAIN. NOTIFIED DR. MTZ AND NEW ORDERS RECEIVED TO START ZANAFLEX 4 MG PO TID FOR PAIN/MUSCLE SPASMS. EDUCATED PT ON NEW ORDERS. ALL QUESTIONS ANSWERED AND SUPPORT VOICED.
[2023-11-20] MEDS: tizanidine 4 mg Tablet PO ×2 (16:41→21:50)
[2023-11-20 19:33] VITALS: BP 87/63; PULSE 78; RESP 19; TEMP 36.4; O2SAT 95
[2023-11-20] MEDS: trazodone 50 mg Tablet PO (20:48)
[2023-11-21 06:00] VITALS: BP 98/64; PULSE 98; RESP 18; TEMP 36.8; O2SAT 77
[2023-11-21] MEDS: tizanidine 4 mg Tablet PO ×3 (08:22→21:45)
[2023-11-21] MEDS: fluoxetine 20 mg Capsule 40 MG PO (08:22)
[2023-11-21] MEDS: hyDROXYzine 25 mg Capsule 50 MG PO ×2 (08:22→21:44)
[2023-11-21] MEDS: ibuprofen 600 mg Tablet PO ×2 (08:22→21:43)
--- NOTE | 2023-11-21 08:59 | PC.NURSE ---
Patient denies avh and si/hi. Patient has been very somatic this morning. He has stated his hips, neck, and back are all hurting. While in patient's room he began making complaints he had not made before about other areas of pain. He grabbed his left rib areas and said it felt his ribs were being pulled apart and that he believes he might have a cancer cyst in his neck, as well as it feeling his vertebrae were being chopped .
[2023-11-21 14:00] VITALS: BP 108/63; PULSE 85; RESP 18; TEMP 38; O2SAT 96
--- NOTE | 2023-11-21 15:31 | PC.NURSE ---
TEMPERATURE IS 100.4 HR 85. PT REPORTS NOT FEELING WELL AND MY BACK HURTS. NEW ORDERS RECEIVED TO COLLECT COVID TEST. SPECIMEN COLLECTED AND SENDING TO LAB. SUPPORT VOICED.
[2023-11-21 16:00] VITALS: BP 95/61; PULSE 111; RESP 18; TEMP 38.6; O2SAT 95
[2023-11-21] MEDS: acetaminophen 325 mg Tablet 650 MG PO (16:12)
[2023-11-21 16:36] LABS: SARS Covid-2 Antigen Positive (Negative)
--- NOTE | 2023-11-21 17:01 | PC.NURSE ---
VITALS CHANGED TO Q4 HOURS PER DR. MTZ DUE TO COVID POSITIVE TEST. PT EDUCATED ON NEW ORDERS, VERBALIZED UNDERSTANDING
--- NOTE | 2023-11-21 18:01 | P.NPUPN_ITS ---
Subjective NPU 2 Subjective: Patient presented today reporting that he is doing okay. We were able to reach his brother who said that he will secure any guns prior to picking him up tomorrow. We discussed the plan for discharge tomorrow and reiterated our concerns about cannabis use and the need for active mental health treatment given this being the second episode of inappropriate agitation leading to hospitalization. He denied any side effects to the medication. Mental Status Exam 2 MSE Comments: This is a slender well-developed white male in hospital scrubs with limited grooming and eye contact. No abnormal movements except for mild psychomotor retardation with somewhat labored ambulation with rolling walker. Cooperative with exam in no mild distress. Speech was mostly normal rate and decreased volume. Mood described as okay but worried about COVID, affect congruent . Thought process was linear and mostly organized. Thought content: Patient denied suicidal or homicidal ideation but did report some possible statements that have been said surrounding this that were not meant, there were no delusions reported but some paranoia and possible respiratory thinking noted, he denied auditory and visual hallucinations. The patient has expressed feelings of anger and hurt due to his family situation. He has admitted to having made suicidal comments in the past out of anger and hurt, but he denies any current suicidal ideation. He does not report any hallucinations, paranoia, or obsessive-compulsive behaviors. He reports periods of significant depression and anxiety, which he says come and go Attention and concentration were intact and memory appeared mostly reliable but none were formally tested. He is alert and oriented x 3. Insight and judgment limited, impulse control is limited. Vitals/I&O/Wt Last Vital Signs Temp 101.5 F H 11/21/23 16:00 Pulse 111 H 11/21/23 16:00 Resp 18 11/21/23 16:00 BP 95/61 11/21/23 16:00 Pulse Ox 95 11/21/23 16:00 O2 Del Method Room Air 11/21/23 06:00 Data NPU 11/14/23 14:25 11/14/23 14:25 A&P Assessment and plan (1) Homicidal behavior: (2) Acute psychosis: (3) Parent-child relational problem: (4) Partner relational problem: (5) Anxiety disorder, unspecified: (6) Major depressive disorder, recurrent, unspecified: (7) Cannabis use disorder: Plan This is a 62-year-old white male with a long history of partner relational problems, parent-child relational problems and some possible addiction with reports of depression and anxiety coming from those challenges with his children and ex-wives. The patient is dealing with significant family stressors, which are contributing to his anxiety and periods of depression. He has a history of anxiety and has been on medication for it. He has made suicidal comments in the past but denies any current suicidal ideation. He has a history of substance use, including daily tobacco use and occasional cannabis use. 1. Continue current medication. Increased Prozac to 40 mg p.o. daily. 2. Continue every 15 minute checks for safety. 3. Encourage individual, group and milieu therapies. 4. Obtain collateral information. Will work with brother to secure guns. Will additionally filed 21-day hold to ensure safety. While we manage those things. 21-day hold was filed but worked with brother to get the guns secured and we will discharge in the morning. 5. Encourage sober living treatment after discharge at the highest level of care to which he is willing to commit. 6. He tested positive for COVID. Will obtain Paxlovid on discharge if possible. Involuntary Hold Information 2 96 Hour Hold: 96 Hour Involuntary Admission: Yes 96 Hour Hold Ending Date: 11/20/23 96 Hour Hold Ending Time: 13:50 Attestations NPU 2 Medical Necessity Statement*: Inpatient hospitalization is medically necessary and the clinically appropriate intervention at this time. We will monitor medication to make changes as indicated. His likely length of stay 1 day. Coding Level of Care Code Acute Code for [facility] Diagnoses Homicidal behavior R45.850 Acute psychosis F23 Parent-child relational problem Z62.820 Partner relational problem Z63.0 Anxiety disorder, unspecified F41.9 Major depressive disorder, recurrent, unspecified F33.9 Cannabis use disorder F12.90
[2023-11-21 20:00] VITALS: BP 91/55; PULSE 98; RESP 18; TEMP 38.8; O2SAT 95
[2023-11-21 21:00] VITALS: TEMP 38.8
[2023-11-21] MEDS: OLANZapine 5 mg ODT PO (21:44)
[2023-11-21 22:47] VITALS: TEMP 36.3
[2023-11-22] VITALS: BP 78/51; PULSE 97; RESP 18; TEMP 36.3; O2SAT 93
[2023-11-22 04:00] VITALS: BP 92/60; PULSE 91; RESP 16; TEMP 36.8; O2SAT 99
--- NOTE | 2023-11-22 07:57 | PC.NURSE ---
patient in room having breakfast, patient upset about some people making more money than others. Patient denies SI, HI, AVH, anxiety, and depression.
[2023-11-22 08:00] VITALS: BP 110/77; PULSE 82; RESP 20; TEMP 36.8; O2SAT 98
[2023-11-22] MEDS: fluoxetine 20 mg Capsule 40 MG PO (08:13)
--- NOTE | 2023-11-22 09:37 | W.PM.NPUDCS ---
Diagnoses at Discharge Discharge Diagnosis (1) Homicidal behavior: Status: Acute (2) Acute psychosis: Status: Acute (3) Parent-child relational problem: Status: Acute (4) Partner relational problem: Status: Acute (5) Anxiety disorder, unspecified: Status: Acute (6) Major depressive disorder, recurrent, unspecified: Status: Acute (7) Cannabis use disorder: Status: Acute Reason for Visit Reason for Visit: 96 evaluation. HI/SI Involuntary Hold Information 96 Hour Hold: 96 Hour Involuntary Admission: Yes 96 Hour Hold Ending Date: 11/20/23 96 Hour Hold Ending Time: 13:50 Mental Status Exam MSE Comments: This is a slender well-developed white male in hospital scrubs with limited grooming and eye contact. No abnormal movements except for mild psychomotor retardation with somewhat labored ambulation with rolling walker. Cooperative with exam in no mild distress. Speech was mostly normal rate and decreased volume. Mood described as okay but worried about COVID, affect congruent . Thought process was linear and mostly organized. Thought content: Patient denied suicidal or homicidal ideation but did report some possible statements that have been said surrounding this that were not meant, there were no delusions reported but some paranoia and possible respiratory thinking noted, he denied auditory and visual hallucinations. The patient has expressed feelings of anger and hurt due to his family situation. He has admitted to having made suicidal comments in the past out of anger and hurt, but he denies any current suicidal ideation. He does not report any hallucinations, paranoia, or obsessive-compulsive behaviors. He reports periods of significant depression and anxiety, which he says come and go Attention and concentration were intact and memory appeared mostly reliable but none were formally tested. He is alert and oriented x 3. Insight and judgment limited, impulse control is limited. Discharge Data Studies Completed and Pending: Completed Studies During Hospitalization Category Date Time Status XR chest 1V barbara ble [id number] Stat Exams 11/15/23 08:49 Completed Radiology Impressions Chest X-Ray 11/15/23 08:49 IMPRESSION: No acute findings. Laboratory Results WBC 10.42 10^3/uL (3. 29-11.43) 11/14/23 14:25 RBC 5.85 10^6/uL (3.8 5-5.65) H 11/14/23 14:25 Hgb 18.10 g/dL (11.27 -16.99) H 11/14/23 14:25 Hct 56.3 % (37-53) H 11/14/23 14:25 MCV 96.2 fl (82-101) 11/14/23 14:25 MCH 30.9 pg (27-33) 11/14/23 14:25 MCHC 32.1 g/dL (30-55) 11/14/23 14:25 RDW 13.0 % (12.1-15.1 ) 11/14/23 14:25 Plt Count 214 10^3/cmm (157 -399) 11/14/23 14:25 MPV 10.6 fL (7.4-10.4 ) H 11/14/23 14:25 Neut % (Auto) 82.3 % 11/14/23 14:25 Lymph % (Auto) 12.5 % 11/14/23 14:25 [place] % (Auto) 4.2 % 11/14/23 14:25 Eos % (Auto) 0.3 % 11/14/23 14:25 Baso % (Auto) 0.4 % 11/14/23 14:25 Neut # (Auto) 8.58 10^3/uL (1.8 -7.7) H 11/14/23 14:25 Lymph # (Auto) 1.3 10^3/uL (0.8- 4.8) 11/14/23 14:25 [place] # (Auto) 0.4 10^3/uL (0.2- 0.9) 11/14/23 14:25 Eos # (Auto) 0.0 10^3/uL (0.0- 0.8) 11/14/23 14:25 Baso # (Auto) 0.0 10^3/uL (0.0- 0.1) 11/14/23 14: Nucleated RBC % (a uto) 0 % 11/14/23 14: Nucleated RBCs # 0.0 /100WBC 11/14/23 14:25 PT 14.90 SECONDS (12 .1-14.9) 11/14/23 14:51 INR 1.13 (0.8-1.2) 11/14/23 14:51 Sodium 140 mmol/L (136-1 45) 11/14/23 14:25 Potassium 3.8 mmol/L (3.5-5 .1) 11/14/23 14:25 Chloride 103 mmol/L (98-10 7) 11/14/23 14:25 Carbon Dioxide 20 mmol/L (22-29) L 11/14/23 14:25 Anion Gap 20.8 (5-19) H 11/14/23 14:25 BUN 22 mg/dL (8-23) 11/14/23 14:25 Creatinine 0.9 mg/dL (0.7-1. 2) 11/14/23 14:25 GFR Calculation 85.8 mL/min (90-1 30) L 11/14/23 14:25 Glucose 135 mg/dL (65-115 ) H 11/14/23 14:25 Calculated Osmolal ity 295 mOsm/kg (285- 295) 11/14/23 14:25 Calcium 9.6 mg/dL (8.5-10 .5) 11/14/23 14:25 Total Bilirubin 0.6 mg/dL (0.15-1 .2) 11/14/23 14:25 AST 13 U/L (0-40) 11/14/23 14:25 ALT 7 U/L (0-41) 11/14/23 14:25 Alkaline Phosphata se 59 U/L (40-130) 11/14/23 14:25 Total Protein 7.5 g/dL (6.6-8.7 ) 11/14/23 14:25 Albumin 5.3 g/dL (3.5-5.2 ) H 11/14/23 14:25 Globulin 2.2 g/dL (1.3-4.6 ) 11/14/23 14:25 TSH 1.01 uIU/mL (0.27 -4.20) 11/15/23 09:02 Urine Color Yellow (Yellow) 11/14/23 15:04 Urine Appearance Clear (CLEAR) 11/14/23 15:04 Urine pH 5.5 (5-7) 11/14/23 15:04 Ur Specific Gravit y 1.026 (1.005-1.0 30) 11/14/23 15:04 Urine Protein Negative (Negati ve) 11/14/23 15:04 Urine Glucose (UA) Negative (Normal ) 11/14/23 15:04 Urine Ketones 1+ (Negative) H 11/14/23 15:04 Urine Blood Trace (Negative) A 11/14/23 15:04 Urine Nitrate Negative (Negati ve) 11/14/23 15:04 Urine Bilirubin Negative (Negati ve) 11/14/23 15:04 Urine Urobilinogen 1.0 mg/dL (Negati ve) 11/14/23 15:04 Ur Leukocyte Sue ase Negative (Negati ve) 11/14/23 15:04 Urine RBC 3-5 /hpf (0-2) 11/14/23 15:04 Urine WBC 0-5 /hpf (0-5) 11/14/23 15:04 Ur Squamous Epith Cells 0-5 /hpf (0-5) 11/14/23 15:04 Amorphous Sediment Not Reportable 11/14/23 15:04 Urine Bacteria None seen /hpf (N ONE) 11/14/23 15:04 Hyaline Casts 0.81 /lpf 11/14/23 15:04 Salicylates < 0.3 mg/dL (3-10 ) L 11/14/23 14:25 Urine Opiates Scre en Negative ng/mL (N egative) 11/14/23 15:04 Acetaminophen < 5.0 ug/mL (10-3 0) L 11/14/23 14:25 Ur Barbiturates Sc reen Negative ng/mL (N egative) 11/14/23 15:04 Ur Phencyclidine S crn Negative ng/mL (N egative) 11/14/23 15:04 Ur Amphetamines Sc reen Negative ng/mL (N egative) 11/14/23 15:04 U Benzodiazepines Scrn Negative ng/mL (N egative) 11/14/23 15:04 Urine Cocaine Scre en Negative ng/mL (N egative) 11/14/23 15:04 U Marijuana (THC) Screen Positive ng/mL (N egative) H 11/14/23 15:04 Ethyl Alcohol < 10 mg/dL (0-10) 11/14/23 14:25 Influenza Type A A g negative (Negati ve) 11/14/23 14:12 Influenza Type B A g negative (Negati ve) 11/14/23 14:12 RSV Antigen Negative (Negati ve) 11/14/23 14:12 SARS-CoV-2 Ag (Rap id) Positive (Negati ve) H 11/21/23 15:27 Vitals: Last Vital Signs Temp 98.2 F 11/22/23 08:00 Pulse 82 11/22/23 08:00 Resp 20 H 11/22/23 08:00 BP 110/77 11/22/23 08:00 Pulse Ox 98 11/22/23 08:00 O2 Del Method Room Air 11/22/23 04:00 Discharge Plan Discharge Patient Disposition: Home Condition: Stable Prescriptions: New fluoxetine 40 mg capsule 30 mg PO DAILY 30 Days Qty: 30 1RF hydroxyzine pamoate 25 mg Capsule 50 mg PO Q6H PRN (Reason: Anxiety) 30 Days Qty: 120 1RF Paxlovid 300 mg (150 mg x 2)-100 mg tablets,dose pack See Rx Instructions .ROUTE .COMPLEX Qty: 30 0RF Rx Instructions: take TWO 150 mg tablets of nirmatrelvir with ONE 100 mg tablet of ritonavir twice daily for 5 days Continued famotidine 20 mg tablet 20 mg PO DAILY albuterol sulfate 90 mcg/actuation HFA aerosol inhaler 2 puff INHALATION Q6H PRN (Reason: Shortness Of Breath Or Wheezing) fluticasone propion-salmeterol 115-21 mcg/actuation HFA aerosol inhaler 2 puff INHALATION BID Discharge Orders: Discharge Order (Routine); Ordered 11/22/23 Ordered By: Dheeraj Khan Referrals: [facility] [Outside] - 11/24/23 12:30 pm (Initial assessment for services with [facility]) Discharge Diet: Regular Discharge Activity: Resume usual activity Patient Instructions: Opioid Safety Discharge Attestations NPU Time Spent in Discharge Care*: less than 30 min Specific Discharge Activities: Specific discharge activities: educating patient, discussing with major case detective/social workers/dc planners, documenting/other paperwork and evaluating patient/reviewing data Coding Level of Care Code Acute Code for [facility] Diagnoses Homicidal behavior R45.850 Acute psychosis F23 Parent-child relational problem Z62.820 Partner relational problem Z63.0 Anxiety disorder, unspecified F41.9 Major depressive disorder, recurrent, unspecified F33.9 Cannabis use disorder F12.90
[2023-11-22 10:02] VITALS: BP 110/77; PULSE 82; RESP 20; TEMP 36.8; O2SAT 98
[2023-11-22 12:00] VITALS: BP 102/67; PULSE 120; RESP 18; TEMP 37; O2SAT 96
== END 2023-11-22 13:55 | disposition home or self-care (01) | DRG 885 ==
LOC: ER 11-16 08:46 → NP 11-16 11:48
PROVIDERS: Emergency Medicine; Admitting Provider Psychiatry & Neurology Psychiatry; Emergency Provider Emergency Medicine; Visit Provider Psychiatry & Neurology Psychiatry
DX: F23 Brief psychotic disorder (principal); U07.1 COVID-19; F33.9 Major depressive disorder, recurrent, unspecified; R45.851 Suicidal ideations; F41.9 Anxiety disorder, unspecified; R45.850 Homicidal ideations; Z63.0 Problems in relationship with spouse or partner; Z62.890 Parent-child estrangement NEC; F12.90 Cannabis use, unspecified, uncomplicated; J44.9 Chronic obstructive pulmonary disease, unspecified; F17.290 Nicotine dependence, other tobacco product, uncomplicated; Z79.51 Long term (current) use of inhaled steroids
CPT/HCPCS: 36415; 71045; 80053; 80306; 80307; 81003; 81015; 84443; 85025; 85610; 87426; 87804; 87899; 93005; 97110; 97140; 97150; 97161; 97165; 99285